=== PATIENT | female | born 1955 | race Caucasian/White ===

== ENCOUNTER 2022-04-30 09:23 | Emergency (ER) | payer OTHER ==
[~2022-04-30] VITALS: Ht 154.9 cm; Wt 79.4 kg
[2022-04-30] MEDS ORDERED: KETOROLAC TROMETHAMINE 10 MG TAB PO ONE (09:45)
[2022-04-30] MEDS ORDERED: METHOCARBAMOL 500 MG TAB PO ONE (09:45)
[2022-04-30] MEDS ORDERED: METHOCARBAMOL500 MG PO (12:48)
[2022-04-30] MEDS ORDERED: NAPROSYN500 MG PO (12:48)
[2022-04-30 13:14] VITALS: BP 124/79
== END 2022-04-30 13:15 | disposition home or self-care (01) ==
LOC: ER 09:44
DX: S13.4XXA Sprain of ligaments of cervical spine, initial encounter (principal); S23.3XXA Sprain of ligaments of thoracic spine, initial encounter; V43.62XA Car passenger injured in collision with other type car in traffic accident, initial encounter; Y92.488 Other paved roadways as the place of occurrence of the external cause; I10 Essential (primary) hypertension; E11.9 Type 2 diabetes mellitus without complications; E03.9 Hypothyroidism, unspecified; F41.9 Anxiety disorder, unspecified; E78.5 Hyperlipidemia, unspecified; M25.78 Osteophyte, vertebrae; M50.30 Other cervical disc degeneration, unspecified cervical region; M51.34 Other intervertebral disc degeneration, thoracic region; M51.36 Other intervertebral disc degeneration, lumbar region
CPT/HCPCS: 72125; 72128; 72131; 99283